=== PATIENT | female | born 1980 | race Hispanic/Latino ===

== ENCOUNTER 2022-05-25 17:58 | Emergency (ER) | payer SELFPAY ==
[~2022-05-25] VITALS: Ht 167.6 cm; Wt 205.9 kg
== END 2022-05-25 19:20 | disposition left against medical advice (07) ==
LOC: FSED 18:09
DX: R10.33 Periumbilical pain (principal); I10 Essential (primary) hypertension; E66.01 Morbid (severe) obesity due to excess calories